=== PATIENT | male | born 1990 | race Caucasian/White ===

== ENCOUNTER 2019-10-03 12:46 | Emergency (ER) | payer OTHER ==
[~2019-10-03] VITALS: Ht 182.9 cm; Wt 98.5 kg
[2019-10-03 12:52] VITALS: BP 126/57
--- NOTE | 2019-10-03 13:01 | NUR ---
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
--- NOTE | 2019-10-03 13:19 | NUR ---
PT AMBULATED TO ROOM WITH A STEADY GAIT. GIRLFRIEND AT BEDSIDE. GOWN GIVEN.
== END 2019-10-03 14:07 | disposition home or self-care (01) ==
LOC: ED 14:01
DX: K64.8 Other hemorrhoids (principal)
CPT/HCPCS: 99282

== ENCOUNTER 2020-02-27 09:08 | Emergency (ER) | payer OTHER ==
[~2020-02-27] VITALS: Ht 182.9 cm; Wt 100.1 kg
--- NOTE | 2020-02-27 09:16 | NUR ---
RN TRANSITIONAL CARE NOTE: NO ANSWER WHEN CALLED FROM [facility]
--- NOTE | 2020-02-27 10:21 | NUR ---
IV PLACED,LABS DRAWN WITH START. PT RATES PAIN TO RUQ, PERIUMBILICAL AREA AT 7/10. NO NAUSEA AT THIS TIME. REQUEST FOR PAIN MEDICATION TO ERP. URINAL AT BS. PT UPDATED ON POC. CALL LIGHT WITHIN REACH.
[2020-02-27] MEDS ORDERED: MORPHINE SULFATE 4 MG/ML, 1ML ONE (10:37)
--- NOTE | 2020-02-27 10:43 | NUR ---
PT MEDICATED PER ERP ORDER FOR PAIN. CALL LIGHT WITHIN REACH. PULSE OX AND BP CUFF IN PLACE. WARM BLANKET PROVIDED.
[2020-02-27 10:55] LABS: BASOPHILS % (AUTO) 0 % (0-1); EOSINOPHILS % (AUTO) 3 % (1-7); LYMPHOCYTES % (AUTO) 32 % (22-44); MEAN CORPUSCULAR HEMOGLOBIN 29.4 pg (27.5-34.5); MEAN CORPUSCULAR HGB CONC 32.4 g/dL (33.2-36.2); MONOCYTES % (AUTO) 7 % (2-9); NEUTROPHILS % (AUTO) 58 % (42-75); PLATELET COUNT 153 x10^3/uL (130-400); RED BLOOD COUNT 5.07 x10^6/uL (4.38-5.82); RED CELL DISTRIBUTION WIDTH 13.4 % (9.4-14.8)
[2020-02-27 10:57] LABS: ALANINE AMINOTRANSFERASE 30 U/L (12-78); ALBUMIN 3.9 g/dL (3.4-5.0); ANION GAP 4 mmol/L (5-15); CALCIUM 9.1 mg/dL (8.5-10.1); CHLORIDE 110 mmol/L (98-107); CREATININE 0.92 mg/dL (0.7-1.3)
[2020-02-27 10:59] LABS: ALKALINE PHOSPHATASE 53 U/L (45-117); BILIRUBIN,TOTAL 0.4 mg/dL (0.2-1.0); MD NO; TOTAL PROTEIN 6.9 g/dL (6.4-8.2)
[2020-02-27] MEDS ORDERED: ONDANSETRON 2MG/ML, 2ML IVPush ONE (11:00)
[2020-02-27] MEDS ORDERED: MORPHINE SULFATE 4 MG/ML, 1ML IVPush PRN (11:00)
--- NOTE | 2020-02-27 11:12 | NUR ---
PT TO CT.
[2020-02-27] MEDS ORDERED: OMNIPAQUE 350 MG/ML, 100ML BOTTLE ONE (11:21)
--- NOTE | 2020-02-27 11:36 | NUR ---
PT BACK FROM CT. URINE COLLECTED/SENT TO LAB. PT STATES PAIN DECREASED, INTERMITTENT, RANGING FROM 0-5/10. CALL LIGHT WITHIN REACH.
[2020-02-27 11:46] LABS: MICROSCOPIC NOT IND
--- NOTE | 2020-02-27 11:59 | NUR ---
ALL RESULTS BACK, PT FOR RECHECK.
[2020-02-27] MEDS ORDERED: DICYCLOMINE 20 MG TABLET PO ONE (13:00)
[2020-02-27] MEDS ORDERED: DICYCLOMINE 20 MG TABLET ONE (13:02)
[2020-02-27 13:24] VITALS: BP 116/64
== END 2020-02-27 13:27 | disposition home or self-care (01) ==
LOC: ED 09:42
DX: R10.84 Generalized abdominal pain (principal); R11.2 Nausea with vomiting, unspecified
CPT/HCPCS: 36415; 74177; 80053; 81003; 83690; 85025; 96374; 99285; J2270; Q9967